=== PATIENT | female | born 1965 | race Caucasian/White ===

== ENCOUNTER 2017-01-26 19:51 | Inpatient (IN) | payer MEDICAID, OTHER ==
[~2017-01-26] VITALS: Ht 162.6 cm; Wt 59.0 kg
[2017-01-27] MEDS: Divalproex (QD) 500 mg ER24 Tablet PO SCH ×3 (00:03→20:57)
[2017-01-27] MEDS ORDERED: Alum-Mag Hydrox-Simeth 30 mL Suspension PO PRN (00:05)
[2017-01-27] MEDS ORDERED: OLANZapine Zydis ODT 5 mg Tablet PO PRN (00:05)
[2017-01-27] MEDS ORDERED: Benzocaine-Menthol Lozenge 2/Pkg PO PRN (00:10)
[2017-01-27] MEDS: hydrOXYzine Pamoate 25 mg Capsule PO PRN ×2 (00:22→12:33)
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
[2017-01-27] MEDS ORDERED: DEPL (04:19)
[2017-01-27] MEDS ORDERED: AZEL137S11 (04:19)
[2017-01-27] MEDS ORDERED: ALBU18HF (04:19)
[2017-01-27] MEDS ORDERED: LISD10CA (04:19)
--- NOTE | 2017-01-27 04:23 | NUR ---
ADMIT/Noc Obs Pt arrived to unit at 2330 via bls. Pt signed all papers in clam cooperative manner. Oriented to unit. Asleep at 130. Observed Q15 as ordered.
[2017-01-27] MEDS: Fluticasone 0.05% 15 Spray/2 Gm 16 Gm Nasal Spray NASAL SCH (08:15)
[2017-01-27] MEDS: Magnesium Hydroxide 10 mL Oral Concentration PO PRN ×2 (09:00→19:14)
[2017-01-27 10:12] VITALS: BP 135/77; PULSE 90; RESP 16
[2017-01-27 14:37] LABS: APPEARANCE,URINE HAZY (CLEAR,HAZY); COLOR,URINE STRAW (YELLOW); OCCULT BLOOD,URINE NEGATIVE (NEGATIVE); PH,URINE 6.5 (5.0-8.0)
[2017-01-27 14:38] LABS: UROBILINOGEN,URINE NORMAL (NORMAL)
--- NOTE | 2017-01-27 16:28 | NUR ---
Obs Dayshift Pt is polite, engaging, and participating. Pt is slightly manic, overly concerned about peers, pacing the unit, slightly pressured. Pt stated that she has had a few concussions and is wondering if she will be getting another MRI while here. Pt has good ADL's, Good meals
[2017-01-27] MEDS: Albuterol HFA 60 Puff 8 Gm Inhaler INHALATION PRN (16:36)
--- NOTE | 2017-01-27 18:40 | NUR ---
Nursing Notes [id number] S: "My shoulder has been hurting, and my ankle". "Here let me help". "I really want to be back on the Vyvance". "I think the medications are really helping. I really like that doctor". O: Patient energetically present on unit, stretching in hallway. Back and forth from room to dining room. Interacting with peers and staff. A: Pressured speech, hyper verbal, manic, cooperative. P: Monitor for safety and response to treatment. Follow plan of care. Addendum: 01/27/17 at 1841 by MUKUND MATIAS RN PRCandida 08:14 Tylenol 650 mg for shoulder pain 12/16. Effective, pain reduced to 4/10. 09:00 Mom 30 mls for constipation. 12:33 Vistaril 50 mg for anxiety 410. Effective, anxiety reduced. 12:33 Tylenol 650 mg for shoulder pain 11/15. Effective, reduced to 4/10.
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
--- NOTE | 2017-01-28 00:21 | NUR ---
Observations 1900 to 0700 Pt attended and participated in wrap up group. Pt ate a snack. Pt showered. Pt is pleasant and cooperative. Pt spends free time wandering between room and dining area. Pt appeared asleep at 2300 and has remained asleep. Pt maintained behavioral control and showed no signs of abnormal behavior. Pt respirations were observed when asleep. Staff completed 15 min close observations as ordered.
--- NOTE | 2017-01-28 05:10 | NUR ---
Nursing Noc Pt hesitant of taking prescribed dose of Depakote this shift, but agreed when explained that attempting to get to therapeutic level. Pt reports chronic discomfort to shoulder and using PRN Tylenol for good pain control this shift. Patient stretching and ambulating at beginning of shift and up again doing the same at 0430. Pt again medication for shoulder pain at that time and is remaining up ambulating around unit. Continuing to monitor mood, behavior and emotional state. Q15 minute safety checks. CP
[2017-01-28] MEDS: Fluticasone 0.05% 15 Spray/2 Gm 16 Gm Nasal Spray NASAL SCH (08:38)
[2017-01-28] MEDS: Albuterol HFA 60 Puff 8 Gm Inhaler INHALATION PRN ×2 (08:39→19:28)
--- NOTE | 2017-01-28 13:14 | NUR ---
Nursing: Pt began the shift anxious and pressured;"It's too much depakote, it does this to me...I tried to tell them..."She has been somewhat hypomanic this shift, grateful for med changes with the doc, talkative and social with her peers. participating in groups. She had nicotine lozenges X2. She is linear and coherent, very much involved in her care.She says the minipress helped with nightmares last night, "At least I didn't remember them." She banged her toe last night(2nd toe on the left foot) that is red and bruised with a pin-head sized open area at base of her toenail. we applied antibiotic and bandaid. and will continue to monitor. It appears she has normal ROM(though it's tender). 1420: MOM and rossy per her request. Reports small BM from MOM yesterday.
[2017-01-28] MEDS: Magnesium Hydroxide 10 mL Oral Concentration PO PRN (14:17)
--- NOTE | 2017-01-28 14:27 | PCM.PNPSY ---
Subjective Date of Service Jan 28, 2017 Subjective The patient reports that she is doing better today and is less hyperactive. She reported initially feeling somewhat sedated when she awoke but we discussed that one of the side effects of discontinuation of Vyvanse is fatigue. The patient appeared assured by this. She also reported that she had caffeinated coffee yesterday which may have caused some increase in agitation. She reported no nightmares and fairly sound sleep but according to her CPAP machine did have an episode of apnea that was longer than anticipated. No other side effects noted. Sleep: 5.5 hours Appetite: "Okay" Suicidal and homicidal ideation: Denies Auditory hallucinations: Denies Visual hallucinations: Denies Other Psychotic Symptoms: N/A "pretty low" Depression: "Some this morning." Current Medications Current Medications Acetaminophen 650 mg Q4H PRN PO Last administered on 01/28/17 12:44; Admin Dose 650 MG; Start 01/27/17 at 00:05 Albuterol 2 puff Q6H PRN INHALATION Last administered on 01/28/17 08:39; Admin Dose 2 PUFF; Start 01/27/17 at 00:05 Clonazepam 1 mg TID PO Last administered on 01/27/17 15:40; Admin Dose 1 MG; Start 01/27/17 at 00:02; Stop 01/27/17 at 19:30; Status DC Divalproex Sodium 500 mg HS PO Last administered on 01/27/17 20:57; Admin Dose 500 MG; Start 01/27/17 at 21:00 Fluticasone Propionate 1 spray DAILY NASAL Last administered on 01/28/17 08:38 ; Admin Dose 1 SPRAY; Start 01/27/17 at 08:30 Hydroxyzine Pamoate 50 mg Q4H PRN PO Last administered on 01/27/17 12:33; Admin Dose 50 MG; Start 01/27/17 at 00:05 Magnesium Hydroxide 10 ml Q12H PRN PO Last administered on 01/27/17 19:14; Admin Dose 10 ML; Start 01/27/17 at 00:05 Nicotine 1 patch DAILY TOPICAL Last administered on 01/28/17 08:38; Admin Dose 1 PATCH; Start 01/27/17 at 08:30 Nicotine Polacrilex 2 mg Q4H PRN BUCCAL Last administered on 01/28/17 11:55; Admin Dose 2 MG; Start 01/27/17 at 00:05 Prazosin HCl 1 mg HS PO Last administered on 01/27/17 20:57; Admin Dose 1 MG; Start 01/27/17 at 21:00 Mental Status Exam Appearance: Neat/well groomed Attitude: Pleasant, Cooperative Behavior: Distractible (mild) Affect: Well Modulated/Appropriate Mood: Expansive (mild) Thought Process/Associations: Logical/Sequential, Goal Directed Speech Production: Normal Speech Rate: Pressured (mild) Speech Articulation: Normal Thought Content: Appropriate Danger to Self/Suicidal Ideati: None Danger to Others: None Hallucinations: Auditory (Denies), Visual (Denies) Consciousness: Alert Orientation: Person, Place, Date, Situation Memory: Grossly Intact Estimate Intellectual Function: Average Attention/Concentration & Cogn: Impaired (mildly) Insight: Good Judgement: Good Mental Health Plan The patient is a 51-year-old female with a history of bipolar disorder who appears to have intrusive thoughts and nightmares consistent with posttraumatic stress disorder. Her attention deficit disorder report appears to have started late and related to the break-up of the marriage of her mother, which would support this as possibly secondary to her posttraumatic stress disorder. We did discuss that lack of sleep is one of the triggers for bipolar disorder and that Vyvanse is currently contraindicated. The patient was aware of this and had stopped using Vyvanse, but she stated it was too late. She feels that the haloperidol is helpful in bringing down her jonathan and she requests a slightly lower dose. She was agreeable to taking low-dose valproate if we can check a blood level. We discussed using prazosin for nightmares and potentially during the day for trauma-related anxiety. The patient has responded to her current treatment and reports sound sleep with prazosin and is so far willing to continue with Depakote at this time. Given her unusual presentation of bipolar, multiple concussions, and history of aneurysm in her father, will check MRI and MRA. Review of genotype of cytochrome P450 indicates the patient is an Extensive metabolizer at 2D6, 2C19, 2B6 Intermediate metabolizer at 2C9, 3A4, SLC6A4, COMT Ultrarapid metabolizer at 1A2 Reduced activity at HTR2A, MTHFR Typical response ADRA2A, OPRM1 [place] Court[place] I: 1. Bipolar disorder, current episode manic, without psychotic features. 2. Probable post-traumatic stress disorder. 3. Attention deficit disorder by history. 4. Marijuana use disorder. 5. Alcohol use disorder. 6. Tobacco use disorder. [place] II: Deferred. [place] III: See past medical history. [place] IV: Moderate. [place] V: Global Assessment of Functioning 40. Medications Medications to address General Physical Health Treatments 1. The patient is admitted to the mental health unit and provided a safe and secure environment. 2. The patient is currently denying suicidal ideation and is not in need of a one-to-one for safety at this time. 3. The patient will be seen by the treatment team on a daily basis to assess symptoms, side effects, and response to treatment. 4. The patient is encouraged to participate with group and milieu therapy. 5. Prazosin 1 mg nightly for trauma-related nightmares. 6. Depakote long-acting 500 mg nightly and follow up blood level 01/31/17 7. Haloperidol 2 mg q.4 h. p.r.n. severe agitation. 8. Continuance of case until 02/01/17. Counselors setting up outpatient provider appointments. Anticipate discharge early next week. Patient well- established and community, does not appear to need LRO. 9. The patient wishes to discuss with her outpatient provider having a better weekend emergency plan. 10. MRI/MRA given history of multiple concussions and unusual presentation of bipolar disorder. 11. Anticipated length of stay is 5-7 days. Ankur George MD Jan 28, 2017 14:27
--- NOTE | 2017-01-28 17:52 | DRSVH ---
PROCEDURE: MRI BRAIN WITHOUT CONTRAST ([id number]) INDICATIONS: Family history of cerebral aneurysm TECHNIQUE: Noncontrast axial T1 spin echo, axial T2 fast spin echo, sagittal and axial FLAIR, coronal T2 fast sp in echo, axial gradient echo, axial diffusion and ADC through the brain. COMPARISON: None. FINDINGS: Image quality: Excellent. CSF Spaces: Basal cisterns are patent. No extra-axial fluid collections. Ventricles are normal in size and shape. Brain: No intracranial masses or acute hemorrhage. Dillon/white matter interface is normal. Brainste m appears normal. Diffusion-weighted images demonstrate no acute ischemic insult. Small focus of enc ephalomalacia with surrounding gliosis noted in the anteromedial margin of the left frontal lobe (ser ies 3, images 18-19; series 5, images 21-22). Encephalomalacia may be related to remote cerebral vasc ular accident versus prior trauma. Small focus of susceptibility hypointensity is related to the area of left frontal encephalomalacia consistent with with remote petechial hemorrhage. Left frontal stephanie chial hemorrhage could be related to trauma or post infarct hemorrhagic transformation. Punctate focu s of susceptibility within hypointensity noted in the sawyer. Normal intravascular flow voids are prese nt. Skull and face: Calvarium has normal marrow signal. Orbits appear normal. Sinuses: Sinuses and mastoids are clear. IMPRESSION: 1. Small area of anterior left frontal encephalomalacia with surrounding gliosis which could be relat ed to remote cerebral vascular accident versus prior trauma. Please correlate with clinical history. 2. Small susceptibility hypointensity associated with the left frontal encephalomalacia which could r epresent a petechial hemorrhage related to prior trauma or post infarct hemorrhagic transformation. 3. Punctate susceptibility hypointensity involving the sawyer. Differential diagnosis includes small ca lcification versus remote petechial hemorrhage related to vascular malformation such as capillary tel angiectasia, post traumatic axonal stretch injury or hypertensive microbleed. Please correlate with c linical history. Dictated by: Asya Yadav MD, PhD on 01/28/2017 at 16:32 Approved by: Asya Yadav MD, PhD on 01/28/2017 at 16:51
--- NOTE | 2017-01-28 17:57 | DRSVH ---
PROCEDURE: MRA ANGIOGRAM HEAD WITHOUT CONTRAST ([id number]) INDICATIONS: Family history of cerebral aneurysm TECHNIQUE: Noncontrast axial 3-D [id number] MR angiogram, with 3-dimensional maximum intensity projection (M IP) reformats of the internal carotid arteries and posterior circulation then performed. COMPARISON: None. FINDINGS: Image quality: Excellent. Anterior circulation: Intracranial internal carotid arteries demonstrate normal size and intralumina l flow signal. 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 The flow within the paired anterior cerebral arteries is normal and symmetric. The flow within the midd le cerebral arteries is normal and symmetric. The anterior communicating artery is seen. No stenose s, occlusions, or aneurysms. Posterior circulation: Visualized portions of the vertebral arteries demonstrate normal caliber, and join to form a normal appearing basilar artery. The flow within the posterior cerebral arteries is normal and symmetric. No stenoses, occlusions, or aneurysms. IMPRESSION: 1. Negative examination. 2. No evidence of cerebral aneurysm. Dictated by: Asya Yadav MD, PhD on 01/28/2017 at 16:51 Approved by: Asya Yadav MD, PhD on 01/28/2017 at 16:55
--- NOTE | 2017-01-28 18:38 | NUR ---
[facility] Day Shift Pt maintained behavioral control throughout the shift. Pt affect appears bright, somewhat manic. Pt spends most of the shift pacing the unit and engaging in unit activities. Pt is pleasant and appropriate with staff and peers when active on the unit. Pt is occasionally hyper verbal, but not intrusive. Pt attended afternoon group activities and participated actively. Pt attended all meals and ate approx 100% of all meals.
--- NOTE | 2017-01-28 19:06 | NUR ---
Commissioner Of Internal Revenue/Counselor: S: "I'm better today and less hyper." O: Patient slept 5.5 hours last night per staff. Patient denies S/I and H/I. She also denies auditory and visual hallucinations. Depression is "better" and anxiety is "pretty low." Patient has out-patient services at [facility], . This typewriters functional tester left a voice message requesting a call back to schedule out-patient appointments for patient. A: Patient is cooperative, improving, bright affect, good insight, good judgment. P: Follow the care plan, coordinate with out-patient providers.
[2017-01-28 19:13] VITALS: BP 130/88; PULSE 93; RESP 18
[2017-01-28] MEDS: Divalproex (QD) 500 mg ER24 Tablet PO SCH (20:37)
--- NOTE | 2017-01-29 05:44 | NUR ---
Nursing Noc Pt noted to be first asleep at midnight. Patient spent the evening in common area interacting with other patients and staff. Presents very energetic or hypomanic. Noted to have very broken sleep and up for the day at 0430. Pt awoke angry, hyperverbal and threatening conflict with another very sick patient r/t that patient being a "bully and swearing as she walks up and down the tam." Wrapper Sizer attempted to redirect or medicate patient but patient denied that she has anxiety or need for medication at this time. Pt redirected with coffee to drink. Continuing to monitor mood, behavior and emotional state. Q15 minute safety checks throughout the night. BHCP Pt received MRI/MRA yesterday with results on front of chart. Labs in am. Klonopin decreased to BID prn.
[2017-01-29] MEDS: Fluticasone 0.05% 15 Spray/2 Gm 16 Gm Nasal Spray NASAL SCH (08:18)
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
[2017-01-29] MEDS: Magnesium Hydroxide 10 mL Oral Concentration PO PRN (14:04)
--- NOTE | 2017-01-29 14:42 | PROG NOTE ---
[address] [address] PROGRESS NOTE PATIENT: SAMEER HUMMEL : 1965 MR#: [id number] ADMIT: 01/26/2017 JOB ID: [id number] DATE: 01/29/2017 CHIEF COMPLAINT: "I get so sleepy on this Depakote, I think I should just plan on using marijuana when I get out of here." This per patient report. HISTORY OF PRESENT ILLNESS: As stated above, the patient did identify that she is experiencing significant sedation and feelings as if she is more depressed on her doses of Depakote. She reports that previously she was using variance of marijuana and feels that her mood had been very stable. She identified that with the reintroduction of Depakote she feels that she is getting more depressed and is concerned about the long-term side effects. I spent some time reviewing documentation with clear indication noncompliance issues in the outpatient sector, significant long-term history with previous trials of alternative mood stabilizers including lithium with resultant lithium toxicity, a rash reaction to Lamictal, anaphylaxis from Risperdal and olanzapine, and difficulties with tolerance of Abilify. OBJECTIVE: On mental status exam the patient was somewhat loose, disorganized. She smiles inappropriately throughout. She had made questionable boundary statements with myself and other staff members. She needs to be redirected at times. Her speech is of normal tone, frequency, and volume. Her mood is anxious. Affect is inappropriate. Her thought process shows significant loose and disorganized thinking. Thought content: She denied any evidence of current suicidal, homicidal ideation. She was alert, oriented to time and place. Her attention and concentration are poor. Insight and judgment are poor. PHYSICAL EXAMINATION: Temperature is 36.3, pulse 93, respirations 18, BP 130/88. MEDICATION REVIEW: Includes doses of Klonopin 0.5 mg t.i.d. p.r.n., prazosin 1 mg q.h.s., Depakote 500 mg q.h.s., hydroxyzine 50 mg q.4 hours p.r.n. ASSESSMENT: Nocona I: 1. Bipolar disorder, most recent episode manic, without psychotic features. 2. Post-traumatic stress disorder, chronic. 3. Attention deficit hyperactivity disorder, combined type. 4. Cannabis use disorder, severe, chronic. 5. Alcohol use disorder. Nocona II: Deferred. Nocona III: Deferred. Nocona IV: Stressors are moderate. Nocona V: Global Assessment of Functioning of current 40. PLAN: 1. Recommendations for continuation of Depakote and prazosin as well as p.r.n. doses of Haldol. 2. Recommended chemical dependency treatment based on the patient's significant overuse/misuse of cannabis and more than likely aggravation of her current mental state. 3. Discussion will be held with the patient with plans of discharge prior to court hearing on the .
[2017-01-29 16:42] VITALS: BP 100/86; PULSE 20; RESP 20
--- NOTE | 2017-01-29 18:16 | NUR ---
Card Reader/Counselor S:" I"m feeling melancholy." O: Patient denies any SI or HI, no auditory or visual hallucinations, no anxiety and no depression. A: Patient is cooperative and friendly. Bright affect, tangential. P: Follow care plan and coordinate with outpatient providers.
[2017-01-29] MEDS: Divalproex (QD) 500 mg ER24 Tablet PO SCH (21:00)
--- NOTE | 2017-01-30 04:13 | NUR ---
Nursing Noc Patient noted to have much difficulty maintaining behavioral control this evening. Pt fixated on getting more Nicorette Lozenges just one hour post previous dose. Pt unable to entertain that her symptoms of anxiety, hostility, tangential thought processes could be related to her mental illness. Pt refused Depakote this shift reporting that it just makes coping worse. Reported that Nicotine supplements prescribed here are inadequate for her two pack a day habit, then minutes later reports that she just smokes about seven cigarettes daily. Patient reported that she doesn't need medications after discharge as she will just use Dab. Continuing to monitor mood, behavior and emotional state. Q15 minute safety checks throughout the night. CP
[2017-01-30] MEDS: Fluticasone 0.05% 15 Spray/2 Gm 16 Gm Nasal Spray NASAL SCH (08:55)
--- NOTE | 2017-01-30 15:19 | PROG NOTE ---
[address] [address] PROGRESS NOTE PATIENT: SAMEER HUMMEL : 1965 MR#: [id number] ADMIT: 01/26/2017 JOB ID: [id number] DATE: 01/30/2017 CHIEF COMPLAINT: "I don't understand why I can't just use marijuana." HISTORY OF PRESENT ILLNESS: As stated above, the patient continued to argue with myself about the usage of marijuana and her concurrent status of mental state. She reportedly stated that she feels that the Depakote is not appropriate and that it just fogs her senses. She evidently did refuse the medication last evening. I did openly confront the patient on her usage of marijuana, and she openly admitted to using greater than the previous identified usage of 3-5 per dabs per day and that she generally uses eight or more a day. She indicates that since the age of 14, she has had a very high tolerance and believes that it is something that she can use therapeutically. I have done significant conversation education with her about the inappropriateness of this usage and that ultimately it only leads to her current disposition and the reason for her current hospitalization. She essentially has stated that she is unwilling to discontinue her usage, and I did challenge her about the need for chemical dependency treatment. She laughed and indicated that she would consider it, if there was a holistic way. I have discussed the possibility of a referral to a program that would utilize CBT and other non-Western types of interventions of therapy to address her concerns based on her significant involvement with homeopathic remedies and also other holistic thought process. OBJECTIVE: On mental status exam, she was cooperative, polite. She laughed inappropriately in reference to discontinuation of her cannabis use. Her speech is of normal tone, frequency, and volume. Her mood is neutral. Affect was inappropriate. Her thought process shows no evidence of racing thoughts. She continues to be somewhat tangential with various staff members and was encouraged to focus on the intent of maintaining her sobriety status. She denies any evidence of current suicidal, homicidal ideation. No evidence of paranoia. No evidence of active hallucinations, delusions at this time. She was alert, oriented to time and place. Her attention and concentration are poor. Insight and judgment are poor. PHYSICAL EXAM: Vital signs, current: Temperature is 36.8, respirations are 20, blood pressure 100/86. ASSESSMENT: Halls I. 1. Substance-induced mood disorder. 2. Substance-induced psychoses, resolving. 3. Cannabis use disorder, severe, chronic. 4. Posttraumatic stress disorder, chronic by history. Halls II. Deferred. Halls III. None. Halls IV. Stressors are moderate. Halls V. Global Assessment of Functioning current 40. PLANS: 1. Recommendations to consider discharge with the intent to involve with chemical dependency treatment. The patient has indicated that she would be willing to consider alternative options. I will do research and provide. 2. Recommendations for discontinuation of Depakote based on the patient's refusal. 3. Continuation of prazosin 1 mg q.h.s. for history of nightmare activity. 4. Probable discharge tomorrow with continuation of outpatient access of care. BAKARI
--- NOTE | 2017-01-30 17:50 | NUR ---
[facility] [[email or web address]] Day Shift Pt maintained behavioral control throughout the shift. Pt affect appears bright, manic. Pt spends most of the shift pacing the unit and engaging in unit activities. Pt is pleasant and appropriate with staff and peers when active on the unit. Pt is occasionally hyper verbal, and is occasionally intrusive/in need of light intervention. Pt attended community meeting and afternoon group activities and participated actively. Pt attended all meals and ate approx 100% of all meals.
[2017-01-30 17:57] VITALS: BP 120/71; PULSE 77; RESP 16
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
--- NOTE | 2017-01-30 17:58 | NUR ---
Internal Controls Specialist/Counselor S:" I"m doing alright." O: Patient denies any SI or HI, no auditory or visual hallucinations, rated her anxiety at a 2, and her depression at a 4. A: Patient is cooperative and friendly. Bright affect, tangential, and needs to be redirected at times. P: Follow care plan and coordinate with outpatient providers
[2017-01-30] MEDS: hydrOXYzine Pamoate 25 mg Capsule PO PRN (22:56)
[2017-01-30] MEDS: Magnesium Hydroxide 10 mL Oral Concentration PO PRN (23:03)
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
[2017-01-31] MEDS: Fluticasone 0.05% 15 Spray/2 Gm 16 Gm Nasal Spray NASAL SCH ×2 (08:05→08:25)
[2017-01-31] MEDS: Albuterol HFA 60 Puff 8 Gm Inhaler INHALATION PRN (08:25)
[2017-01-31 09:30] VITALS: BP 137/74; PULSE 85; RESP 16
--- NOTE | 2017-01-31 10:26 | PCM.DIMED ---
Discharge Instructions Date of Service Jan 31, 2017 Dates of Hospitalization Jan 26, 2017 at 23:42 Discharge Diagnosis Discharge Diagnosis Substance Induced Psychosis Resolved Substance Induced Mood DO Cannabis Use DO Severe, chronic PTSD chronic Diet Discharge Diet: No restrictions Activity Discharge Activity: No restrictions Bahman Pratt DO Jan 31, 2017 10:26
[2017-01-31] MEDS ORDERED: PRAZ1CAP PO (10:27)
[2017-01-31] MEDS ORDERED: HYDR100C2 PO (10:27)
--- NOTE | 2017-01-31 13:05 | NUR ---
Discharge Pt left at 1215. She signed all discharge paperwork and expressed understanding of her discharge plan. Home medications given to pt. Pt expressed feeling hopeful about future. She denied thoughts of harm to self or others.
--- NOTE | 2017-01-31 16:19 | NUR ---
Tip Puncher/Counselors S/O: Patient has been pacing the unit, waiting for her to pick her up. Patient denies any SI or HI, no auditory or visual hallucinations, and did not rate her anxiety or depression. A: Patient has follow up appt. scheduled with [facility] on 02/02/17 at 1pm. Patient will also pursue holistic counseling with [facility]. P:Follow discharge plan.
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
== END 2017-01-31 12:15 | disposition home or self-care (01) | DRG 897 ==
LOC: MHC 23:42
PROVIDERS: ADMIT Psychiatry & Neurology Psychiatry; ATTEND Psychiatry & Neurology Psychiatry
DX: F19.959 Other psychoactive substance use, unspecified with psychoactive substance-induced psychotic disorder, unspecified (principal); F19.94 Other psychoactive substance use, unspecified with psychoactive substance-induced mood disorder; F43.12 Post-traumatic stress disorder, chronic; F12.90 Cannabis use, unspecified, uncomplicated; Z72.89 Other problems related to lifestyle; Z72.0 Tobacco use